=== PATIENT | female | born 1975 | race Caucasian/White ===

== ENCOUNTER 2016-11-16 10:41 | Emergency (ER) ==
[2016-11-16 11:09] LABS: URINE CULTURE PL NEEDED? NO; URINE SOURCE CLEAN CATCH
[2016-11-16 11:13] LABS: BILIRUBIN URINE NEGATIVE (NEGATIVE); BLOOD URINE NEGATIVE (NEGATIVE); CLARITY CLEAR (CLEAR); COLOR YELLOW; GLUCOSE URINE NEGATIVE (NEGATIVE); LEUKOCYTES URINE NEGATIVE (NEGATIVE); NITRITE URINE NEGATIVE (NEGATIVE); PH URINE 6.5; PROTEIN URINE NEGATIVE (NEGATIVE); UROBILINOGEN URINE NORMAL
[2016-11-16 11:22] LABS: URINE EPITHELIAL CELLS >10 /HPF (<10)
[2016-11-16] MEDS ORDERED: TORADOL IM ONE (13:22)
--- NOTE | 2016-11-16 13:23 | PROVIDER DOCUMENTATION ---
HPI-General Adult - General Chief Complaint: UTI Symptoms Stated Complaint: FLANK/LIVER PAIN Time Seen by Provider: 11/16/16 13:05 Source: patient Allergies/Adverse Reactions: Patient Allergies Allergy/AdvReac Type Severity Reaction Status Date / Time No Known Allergies Allergy Verified 10/26/16 12:52 Home Medications: Home Medication List Medication Instructions Recorded Confirmed Last Taken Type Diclofenac Sodium 75 mg PO Q12H PRN #14 tablet. 11/16/16 Unknown Rx Sulfamethoxazole/Trimethoprim 1 each PO BID #6 tablet 11/16/16 Unknown Rx [Bactrim Ds Tablet] - History of Present Illness -Gen Adult Nature of Presenting Problems: PATIENT REPORTS BILATERAL FLANK PAIN, AND URINARY URGENCY X2 DAYS. STATES RECENT TREATMENT FOR UTI WITH ABX "THAT STARTED WITH M, I CAN'T REMEMBER WHAT THE MEDICINE WAS CALLED FOR SURE. I FINISHED ALL THE MEDICINE AND EVERYTHING GOT BETTER BUT SOON I STOPPED THE MEDICINE I HAVE SYMPTOMS AGAIN". DENIES DYSURIA. PATIENT ALSO REQUESTS RX REFILL OF FIORICET FOR CHRONIC MIGRAINE MANAGEMENT. Location of Pain/Injury: reports: back Pain Radiation: reports: no radiation Quality of Pain: reports: aching Severity: reports: moderate Onset/Duration: reports: 2 days ago Timing: reports: still present Context/Activities at Onset: reports: none Associated Symptoms: reports: other (FLANK PAIN, URINARY URGENCY) Similar Symptoms Previously?: Yes (DX WITH UTI) Recently seen or treated by another doctor?: Yes ([facility], TREATED FOR UTI.) Review of Systems - Adult - REVIEW OF SYSTEMS - ADULT Constitutional: reports: no symptoms reported Eyes: reports: no symptoms reported Ears, Nose, Mouth & Throat: reports: no symptoms reported Cardiovascular: reports: no symptoms reported Respiratory: reports: no symptoms reported Gastrointestinal: reports: no symptoms reported Genitourinary: reports: see HPI Musculoskeletal: reports: no symptoms reported Integumentary: reports: no symptoms reported Neurological: reports: no symptoms reported Psychiatric: reports: no symptoms reported Endocrine: reports: no symptoms reported Hematologic/Lymphatic: reports: no symptoms reported Allergic/Immunologic: reports: no symptoms reported Past History - Adult - PAST MEDICAL HISTORY-ADULT Review of Records: reports: Nursing Assessment Review, Medications Reviewed, Social history reviewed & non-contributory. Major Childhood Illnesses: reports: denies history Cardiovascular: reports: denies history Respiratory: reports: denies history Gastrointestinal: reports: denies history Obstetrical/Gynecological: reports: denies history Genitourinary: reports: denies history Musculoskeletal: reports: denies history Neurological: reports: headaches/migraines Endocrine/Immune: reports: denies history Other Conditions: reports: denies history - PRIOR SURGERIES/PROCEDURES Surgical/Procedure History: reports: reviewed, not pertinent - PRIOR HOSPITALIZATIONS Prior Hospitalizations: reports: for other non-related - IMMUNIZATION STATUS Childhood Immunizations: See Nurse Assessment Flu Vaccine: See Nurse Assessment - FAMILY HISTORY Family History: reviewed, not pertinent Physical Exam-General - PHYSICAL EXAM-ADULT Initial Vital Signs Reviewed: Yes - CONSTITUTIONAL General Appearance: appears well, alert, no apparent distress - EYES Eyes: PERRL/EOMI - HEAD, EARS, NOSE, MOUTH & THROAT HENMT: normocephalic/atraumatic, moist mucous membranes - NECK Neck: full range of motion - RESPIRATORY Respiratory: lungs clear, normal breath sounds - CARDIOVASCULAR Cardiovascular: regular rate, rhythm - GASTROINTESTINAL (ABDOMEN) Abdominal Exam: normal bowel sounds, non tender, soft - LYMPHATIC Lymphatic: no adenopathy - MUSCULOSKELETAL Back Exam: no vertebral tenderness, CVA tenderness Extremity: normal range of motion, normal gait - SKIN Integumentary: normal color, normal turgor, warm/dry - NEUROLOGIC Neurologic: grossly normal - PSYCHIATRIC Psych/Mental Status: normal mood/affect, normal thought content, normal thought process, oriented x 3 Progress - PLAN OF CARE/RESULTS Progress/Plan/Lab Results: Laboratory Tests 11/16/16 11:00 Urine Source CLEAN CATCH Urine Color YELLOW Urine Clarity CLEAR Urine pH 6.5 Ur Specific Ward 1.010 Urine Protein NEGATIVE Urine Ketones NEGATIVE Urine Blood NEGATIVE Urine Nitrite NEGATIVE Urine Bilirubin NEGATIVE Urine Urobilinogen NORMAL Urine Microscopic RBC Not Reportable Urine WBC NEGATIVE Ur Epithelial Cells >10 A Urine Bacteria 1+ Urine Glucose NEGATIVE Vital Signs - 24 hr 11/16/16 10:55 Temperature 98 F Pulse Rate 108 H Respiratory 18 Rate Blood Pressure 135/82 O2 Sat by Pulse 100 Oximetry Departure - Departure Time of Disposition Order: 13:23 DIAGNOSIS: Urinary tract infection Qualifiers: Urinary tract infection type: site unspecified Disposition: HOME 01 Certified Medical Emergency: Emergent Condition: Good Additional Instructions: AVOID TAKING EXCESS AMOUNTS OF EXCEDRIN MEDICATION. CHRONIC PAIN MEDICINE IS NOT REFILLED THROUGH THE ER. Prescriptions: Sulfamethoxazole/Trimethoprim [Bactrim Ds Tablet] 1 each PO BID #6 tablet Diclofenac Sodium 75 mg PO Q12H PRN #14 tablet.dr HUYNH Reason: Pain Referrals: None,PCP [Primary Care Provider] - Lorenzo Swartz MD [STAFF PHYSICIAN] - (FOLLOW UP WITH DR. SWARTZ IF URINARY SYMPTOMS ARE NOT IMPROVED IN 3-5 DAYS. AND ALSO FOLLOW UP WITH DR. SWARTZ FOR FURTHER MANAGEMENT OF CHORNIC MIGRAINES. ) Attestation - Physician/ [facility] Attestation Patient care was provided by Advanced Practice Provider:: Yes Advanced Practice Provider:: Abdirizak Khan Advanced Practice Provider documentation review:: The Mid-level provider documentation, treatment plan and medical decision making was reviewed by the physician who agrees with all treatment and medical decision making by the MLP.
[2016-11-16 13:34] VITALS: BP 105/77
== END 2016-11-16 13:44 | disposition home or self-care (01) ==
LOC: P.ED 10:41
DX: N39.0 Urinary tract infection, site not specified (principal); R10.9 Unspecified abdominal pain; R39.15 Urgency of urination; M54.9 Dorsalgia, unspecified
CPT/HCPCS: 81001; J1885